=== PATIENT | female | born 1980 | race Caucasian/White ===

== ENCOUNTER 2019-07-14 07:56 | Emergency (ER) | payer MEDICAID ==
[~2019-07-14] VITALS: Ht 165.1 cm; Wt 84.4 kg
[2019-07-14 11:36] VITALS: BP 130/75
== END 2019-07-14 11:36 | disposition home or self-care (01) ==
LOC: ED 07:56
DX: M54.16 Radiculopathy, lumbar region (principal); E78.00 Pure hypercholesterolemia, unspecified
CPT/HCPCS: J1100; J1885